=== PATIENT | female | born 2000 | race African-American/Black ===

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

== ENCOUNTER 2018-02-04 11:57 | Emergency (ER) | payer OTHER ==
[~2018-02-04] VITALS: Ht 167.6 cm; Wt 112.0 kg
[2018-02-04 12:11] VITALS: BP 109/63
[2018-02-04] MEDS: LIDOCAINE 1% (LOCAL ANESTH.) PF 5ml SDV ID ONE (15:12)
[2018-02-04] MEDS: TETANUS-DIPTH-ACEL PERTUSSIS 0.5ML SYRG IM ONE (15:12)
[2018-02-04] MEDS: BACITRACIN TOP OINT 1 UD PKG TOP ONE (15:14)
== END 2018-02-04 15:24 | disposition home or self-care (01) ==
LOC: ER 11:59
DX: S61.011A Laceration without foreign body of right thumb without damage to nail, initial encounter (principal); J45.909 Unspecified asthma, uncomplicated; W26.9XXA Contact with unspecified sharp object(s), initial encounter; Y93.89 Activity, other specified; Y99.8 Other external cause status; Y92.89 Other specified places as the place of occurrence of the external cause
CPT/HCPCS: 12001; 90471; 90715

== ENCOUNTER 2018-02-12 23:13 | Emergency (ER) | payer OTHER ==
[~2018-02-12] VITALS: Ht 167.6 cm; Wt 112.0 kg
[2018-02-12 23:25] VITALS: BP 109/71
== END 2018-02-13 01:43 | disposition home or self-care (01) ==
LOC: ER 23:15
DX: B35.4 Tinea corporis (principal); J45.909 Unspecified asthma, uncomplicated; Z87.442 Personal history of urinary calculi

== ENCOUNTER 2018-07-22 19:51 | Emergency (ER) | payer OTHER ==
[~2018-07-22] VITALS: Ht 167.6 cm; Wt 113.4 kg
[2018-07-22 20:53] LABS: Urine Bacteria FEW /hpf (None Seen); Urine Blood 2+ /uL (Negative); Urine Mucus FEW (None Seen); Urine WBC 26 /hpf (0 - 5)
[2018-07-22 21:00] LABS: Basophils # (auto) 0 uL; Basophils % (auto) 0.4 % (0.0-2.0); Eosinophils # (auto) 0.1 uL; Eosinophils % (auto) 1.6 % (0.0-7.0); Hematocrit 37.7 % (36.0-46.0); Hemoglobin 12.6 g/dL (12.2-16.2); Lymphocytes # (auto) 1.8 uL; Lymphocytes % (auto) 37.1 % (10.0-50.0); Mean Corpuscular Hemoglobin 27.8 pg (28.0-32.0); Mean Corpuscular Hgb Conc. 33.4 g/dL (32.0-36.0); Mean Corpuscular Volume 83.1 fL (80.0-100.0); Monocytes # (auto) 0.4 uL; Monocytes % (auto) 7.4 % (0.0-12.0); Neutrophils # (auto) 2.6 uL; Neutrophils % (auto) 53.5 % (37.0-80.0); Nucleated Red Blood Cells % 0.2 %; Platelet Count (auto) 215 10^3/uL (140-450); Red Blood Cells 4.54 10^6/uL (4.0-5.20); Red Cell Distribution Width 13.8 % (11.8-14.3); White Blood Cell 4.9 10^3/uL (4.4-10.8)
[2018-07-22 23:09] LABS: BUN/Creatinine Ratio 8.8; Blood Urea Nitrogen 6 mg/dL (7-18); Chloride 103 mmol/L (98-107); GFR African American 142 mL/min; GFR Non-African American 117 mL/min; Glucose 80 mg/dL (74-106); Potassium 3.8 mmol/L (3.5-5.1); Sodium 138 mmol/L (136-145)
[2018-07-22 23:10] LABS: Alanine Aminotransferase 18 U/L (13-56); Alkaline Phosphatase 54 U/L (45-117); Aspartate Aminotransferase 16 U/L (15-37); Calcium 8.8 mg/dL (8.5-10.1)
[2018-07-22 23:11] LABS: Albumin 3.1 g/dL (3.4-5.0); Bilirubin, Total 0.3 mg/dL (0.2-1.0); Total Protein 7.5 g/dL (6.4-8.2)
[2018-07-22 23:51] VITALS: BP 119/70
== END 2018-07-23 00:14 | disposition home or self-care (01) ==
LOC: ER 19:51
DX: O36.4XX0 Maternal care for intrauterine death, not applicable or unspecified (principal); O23.41 Unspecified infection of urinary tract in pregnancy, first trimester; O99.511 Diseases of the respiratory system complicating pregnancy, first trimester; J45.909 Unspecified asthma, uncomplicated; Z3A.01 Less than 8 weeks gestation of pregnancy
CPT/HCPCS: 36415; 76801; 76817; 80053; 81001; 81025; 84702; 85025

== ENCOUNTER 2019-08-23 13:48 | Emergency (ER) | payer OTHER ==
[~2019-08-23] VITALS: Ht 167.6 cm; Wt 99.8 kg
[2019-08-23 14:08] VITALS: BP 130/76
[2019-08-23] MEDS ORDERED: methylPREDNISolone SOD SUCC 125 MG/2 ML VL IM ONE (15:15)
== END 2019-08-23 15:45 | disposition home or self-care (01) ==
LOC: ER 13:48
DX: J20.9 Acute bronchitis, unspecified (principal); H66.93 Otitis media, unspecified, bilateral; J45.909 Unspecified asthma, uncomplicated; Z87.442 Personal history of urinary calculi
CPT/HCPCS: 96372; 99283; J2930

== ENCOUNTER → 2020-01-18 | Emergency (ER) | payer OTHER ==
[~2020-01-18] VITALS: Ht 165.1 cm; Wt 94.3 kg
[~2020-01-18] MED LIST changes: +cefTRIAXone 1GM/50ML D5W 50 ML IV ONE
[2020-01-18 12:10] LABS: Basophils # (auto) 0 10 ^3/uL (0-0.2); Basophils % (auto) 0.4 % (0.0-2.0); Eosinophils # (auto) 0 10 ^3/uL (0-0.8); Hematocrit 38.7 % (36.0-46.0); Hemoglobin 13.1 g/dL (12.2-16.2); Lymphocytes # (auto) 0.8 10 ^3/uL (0.4-5.4); Lymphocytes % (auto) 8.6 % (10.0-50.0); Mean Corpuscular Hemoglobin 28.7 pg (28.0-32.0); Mean Corpuscular Hgb Conc. 33.7 g/dL (32.0-36.0); Monocytes # (auto) 0.7 10 ^3/uL (0-1.3); Monocytes % (auto) 6.8 % (0.0-12.0); Neutrophils # (auto) 8.3 10 ^3/uL (1.6-8.6); Neutrophils % (auto) 84.2 % (37.0-80.0); Platelet Count (auto) 189 10^3/uL (140-450); Red Blood Cells 4.55 10^6/uL (4.0-5.20); Red Cell Distribution Width 13.7 % (11.8-14.3); White Blood Cell 9.8 10^3/uL (4.4-10.8)
[2020-01-18 12:30] LABS: Albumin 3.5 g/dL (3.4-5.0); Calcium 9.2 mg/dL (8.5-10.1)
[2020-01-18 12:35] LABS: BUN/Creatinine Ratio 9.1; Total Protein 7.4 g/dL (6.4-8.2)
[2020-01-18 13:09] LABS: Urine Bacteria FEW /hpf (None Seen); Urine Blood 1+ /uL (Negative); Urine Budding Yeast MODERATE /hpf (None Seen); Urine Mucus FEW (None Seen); Urine Specific Gravity 1.013 (1.001-1.035); Urine WBC 202 /hpf (0 - 5)
[2020-01-18 14:06] VITALS: BP 113/73
== END | disposition home or self-care (01) ==
LOC: ER 11:25
DX: M79.10 Myalgia, unspecified site (principal); N39.0 Urinary tract infection, site not specified; R11.2 Nausea with vomiting, unspecified; J45.909 Unspecified asthma, uncomplicated; F17.210 Nicotine dependence, cigarettes, uncomplicated; Z79.899 Other long term (current) drug therapy
CPT/HCPCS: 36415; 80053; 81001; 81025; 85025; 96365; 99284; J0696